=== PATIENT | female | born 1985 | race Caucasian/White ===

== ENCOUNTER → 2017-09-02 13:09 | Observation (INO) ==
[2017-09-02 09:53] LABS: Bilirubin,Urine Negative (Negative); Blood,Urine Negative (Negative); Clarity,Urine Clear (Clear); Color,Urine Yellow (Yellow); Glucose,Urine (UA) Normal (Normal); Ketones,Urine Negative (Negative); Leukocyte Esterase,Urine Negative (Negative); Nitrite,Urine Negative (Negative); Protein,Urine Trace mg/dL (Neg-Trace); Specific Gravity,Urine 1.029 (1.010-1.025); Urobilinogen,Urine Normal (Normal)
[2017-09-02 09:57] LABS: Bacteria,Urine None Seen per hpf (None-Few); Hyaline Casts,Urine None Seen per lpf (None-Few); Squamous Epithelial Cell,Urine Many per lpf (None-Few)
[2017-09-02 11:16] LABS: Amphetamine Screen,Urine Negative ng/mL (Cutoff=1000); Barbiturate Screen,Urine Negative ng/mL (Cutoff=200); Benzodiazepines Screen,Urine Negative ng/mL (Cutoff=200); Cannabinoid Screen,Urine Negative ng/mL (Cutoff = 50); Cocaine Screen,Urine Negative ng/mL (Cutoff= 300); Opiate Screen,Urine Negative ng/mL (Cutoff=300); Phencyclidine Screen,Urine Negative ng/mL (Cutoff=25)
[2017-09-02 12:17] LABS: Basophils % 0.2 %; Eosinophils # 0.1 K/mcL (0.0-0.6); Eosinophils % 1.9 %; Hematocrit 28.6 % (35.3-44.9); Hemoglobin 9.4 g/dL (11.5-15.4); Immature Granulocytes % 0.7 % (0-4); Lymphocytes % 18.1 %; Mean Corpuscular HGB Conc 32.9 g/dL (31.6-35.5); Mean Corpuscular Hemoglobin 29.7 pg (28.0-33.3); Mean Corpuscular Volume 90.2 fL (83.0-100.0); Mean Platelet Volume 9.9 fL (9.4-12.4); Monocytes # 0.5 K/mcL (0.0-1.3); Monocytes % 7.9 %; Neutrophils # 4.1 K/mcL (1.6-8.9); Platelet Count 103 K/mcL (140-400); Red Blood Count 3.17 M/mcL (3.82-4.97); Red Cell Distribution Width 14.2 % (11.5-14.5); Segmented Neutrophils % 71.2 %
--- NOTE | 2017-09-02 12:25 | OB/GYN History & Physical ---
Date of Encounter: 09/02/17 Time of Encounter: 12:00 Assessment and Plan (1) No care in current in third trimester Current visit: Yes Status: Acute admitted for observation lab work drawn Ultrasound for EFW, EGA, Placenta location Patient to call office on Monday to schedule care appointment with Dr. Armstrong (2) Low back pain Current visit: No Status: Acute discussed interventions for pain Qualifiers: Chronicity: acute Back pain laterality: right Sciatica presence: with sciatica Sciatica laterality: sciatica of right side Qualified Code(s): M54.41 - Lumbago with sciatica, right side (3) Current visit: No Status: Acute ultrasound dates at 30 weeks gestation Qualifiers: Weeks of gestation: 30 weeks Qualified Code(s): Z3A.30 - 30 weeks gestation of (4) Polyhydramnios affecting in third trimester Current visit: Yes Status: Acute NORBERTO 27.2 Patient encouraged to notify provider Patient needs 3 hour gtt (5) Rh negative status during in third trimester Current visit: Yes Status: Acute Rhogam given before discharge due to not having care and being 30 weeks gestation (6) Anemia affecting in third trimester Current visit: Yes Status: Acute Will start ferrous sulfate daily History of Present Illness Chief complaint: low back pain HPI: Ms. Mabry is a 32 year old female G3 T2 L2 presents to labor and delivery with complaints of low right sided back pain. Patient reports she is unsure of her gestational age due to not starting care yet. Patient reports she plans to see Dr. Armstrong because he was her doctor with last . Patient reports the pain occasionally goes down her leg, denies LOF or VB. Denies feeling contractions. Patient reports she took Motrin for the back pain. Patient educated to stop taking motrin during and take Tylenol if needed. Patient denies taking PNV. lab work and ultrasound ordered. Past Med Surg Social Fam HX - Past Medical History Source: patient Medical history: no medical history Psychiatric history: depression () - Past Surgical History Surgical History: no surgical history - Social History Smoking Status: Never smoker Smokeless Tobacco Status: No Alcohol use: none Drug use: none Recent Out of Country Travel Within the Last 8 Weeks: No Exposure or Possible Exposure to Illness During Travel: No - Family History Mother Living Status: Still Living Hx Family Cardiac Disorders: Yes (HTN) Hx Family Respiratory Disorders: No Hx Family Cancer: No Hx Family GI Disorders: No Hx Family Genitourinary Disorders: No Hx Family Endocrine Disorder: No Hx Family Musculoskeletal Disorders: No Hx Family Neuromuscular Disorders: No Hx Family Neurologic Disorders: No Hx Family HEENT Disorders: No Hx Family Autoimmune Disorders: No Hx Family Reproductive Disorders: No Hx Family Psychosocial Disorders: Yes (anxiety, depression) Hx Family Medical Disorders: No Obstetrical History - Pregnancies : 3 Para: 2 Term: 2 : 0 Ab's: 0 Livin Medications and Allergies No Known Home Drugs 09/02/17 [History] 3 Allergy/AdvReac Type Severity Reaction Status Date / Time No Known Allergies Allergy Verified 01/30/15 17:07 Review of System OB - Constitutional Constitutional ROS IM: no chills, no fever(s), no headache(s) - Cardiovascular Cardiovascular: no chest pain, no leg edema, no lightheadedness, no palpitations , no pedal edema, no syncope - Respiratory Respiratory: no cough - Gastrointestinal Gastrointestinal: no abdominal pain, no constipation, no cramping, no diarrhea, no heartburn, no nausea, no vomiting - Genitourinary Genitourinary: no abnormal vaginal bleeding, no difficulty urinating, no dysuria , no flank pain, no urinary frequency, no urinary incontinence, no urinary urgency, no vaginal discharge, no vaginal odor, no vaginal pruritis Exam - Constitutional Constitutional: well developed, well nourished, no acute distress, obese - HEENT HEENT: Normocephaly, Mucus Membranes Moist - Neck Neck exam: full ROM, supple - Lungs Respiratory exam: CTAB - Cardiovascular Cardiovascular exam: RRR, +S1, +S2 - Abdomen Abdomen: Present: bowel sounds normal, gravid, non tender - Extremities Extremities exam: full ROM, normal capillary refill, normal inspection Deep Tendon Reflex Grade: 2+ Normal - Comments Comments: FHR 135 bpm appropriate for gestational age. No contractions noted Results Result Diagrams: 09/02/17 12:03 Abnormal lab results RBC 3.17 M/mcL (3.82-4.97) L 09/02/17 12:03 Hgb 9.4 g/dL (11.5-15.4) L 09/02/17 12:03 Hct 28.6 % (35.3-44.9) L 09/02/17 12:03 Plt Count 103 K/mcL (140-400) L 09/02/17 12:03 Ur Specific [place] 1.029 (1.010-1.025) H 09/02/17 09:30 Urine Microscopic RBC 3-5 per hpf (0-3) H 09/02/17 09:30 Urine Microscopic WBC 3-5 per hpf (0-3) H 09/02/17 09:30 Ur Squamous Epith Cells Many per lpf (None-Few) H 09/02/17 09:30 All other labs normal. - VTE Reasons for not Prescribing Prophylaxis: Treatment not Indicated - Low risk for VTE
--- NOTE | 2017-09-02 12:43 | Discharge Summary ---
Date of Encounter: 09/02/17 Time of Encounter: 12:42 - Discharge Diagnosis (1) No care in current in third trimester Priority: Primary Status: Acute Comments: No care workup patient to follow up with Dr. Armstrong per patient request Will start PNV (2) Low back pain Priority: Secondary Status: Acute Comments: Interventions discussed Qualifiers: Chronicity: acute Back pain laterality: right Sciatica presence: with sciatica Sciatica laterality: sciatica of right side Qualified Code(s): M54.41 - Lumbago with sciatica, right side (3) Priority: Secondary Status: Acute Comments: Patient to follow up estee with OB provider Qualifiers: Weeks of gestation: 30 weeks Qualified Code(s): Z3A.30 - 30 weeks gestation of (4) Polyhydramnios affecting in third trimester Priority: Secondary Status: Acute Comments: Patient educated on Polyhydramnios Patient needs 3 hour gtt (5) Rh negative status during in third trimester Priority: Secondary Status: Acute Comments: Rhogam given prior to discharge (6) Anemia affecting in third trimester Priority: Secondary Status: Acute Comments: will start ferrous sulfate daily - Discharge Medications Prescriptions: Ferrous Sulfate 325 mg PO DAILY #30 tablet Vit Calc,Iron,Folic [ Vitamins] 1 each PO DAILY #30 tablet Home Medications: Ferrous Sulfate 325 mg PO DAILY #30 tablet 09/02/17 [Rx] Vit Calc,Iron,Folic [ Vitamins] 1 each PO DAILY #30 tablet [Rx] Allergies/Adverse Reactions: 3 Allergy/AdvReac Type Severity Reaction Status Date / Time No Known Allergies Allergy Verified 01/30/15 17:07 Data Procedures and tests throughout hospitalization: Laboratory Tests 09/02/17 09/02/17 09/02/17 09:30 09:30 09:30 WBC RBC Hgb Hct MCV MCH MCHC RDW Plt Count MPV Immature Gran % Seg Neutrophils % Lymphocytes % Monocytes % Eosinophils % Basophils % Neutrophils # Lymphocytes # Monocytes # Eosinophils # Basophils # Urine Color Yellow Urine Clarity Clear Urine pH 6.0 Ur Specific [place] 1.029 H Urine Protein Trace Urine Glucose (UA) Normal Urine Ketones Negative Urine Blood Negative Urine Nitrite Negative Urine Bilirubin Negative Urine Urobilinogen Normal Ur Leukocyte Esterase Negative Urine Microscopic RBC 3-5 H Urine Microscopic WBC 3-5 H Ur Squamous Epith Cells Many H Urine Bacteria None Seen Hyaline Casts None Seen Ur Culture Indicated? NO Urine Opiates Screen Negative Ur Barbiturates Screen Negative Ur Phencyclidine Scrn Negative Ur Amphetamines Screen Negative U Benzodiazepines Scrn Negative Urine Cocaine Screen Negative U Marijuana (THC) Screen Negative Blood Type A NEGATIVE 09/02/17 12:03 WBC 5.7 RBC 3.17 L Hgb 9.4 L Hct 28.6 L MCV 90.2 MCH 29.7 MCHC 32.9 RDW 14.2 Plt Count 103 L MPV 9.9 Immature Gran % 0.7 Seg Neutrophils % 71.2 Lymphocytes % 18.1 Monocytes % 7.9 Eosinophils % 1.9 Basophils % 0.2 Neutrophils # 4.1 Lymphocytes # 1.0 Monocytes # 0.5 Eosinophils # 0.1 Basophils # 0.0 Urine Color Urine Clarity Urine pH Ur Specific [place] Urine Protein Urine Glucose (UA) Urine Ketones Urine Blood Urine Nitrite Urine Bilirubin Urine Urobilinogen Ur Leukocyte Esterase Urine Microscopic RBC Urine Microscopic WBC Ur Squamous Epith Cells Urine Bacteria Hyaline Casts Ur Culture Indicated? Urine Opiates Screen Ur Barbiturates Screen Ur Phencyclidine Scrn Ur Amphetamines Screen U Benzodiazepines Scrn Urine Cocaine Screen U Marijuana (THC) Screen Blood Type Labs on day of discharge: Labs from last 24 hours 09/02/17 09/02/17 09/02/17 12:03 09:30 09:30 WBC 5.7 RBC 3.17 L Hgb 9.4 L Hct 28.6 L MCV 90.2 MCH 29.7 MCHC 32.9 RDW 14.2 Plt Count 103 L MPV 9.9 Immature Gran % 0.7 Seg Neutrophils % 71.2 Lymphocytes % 18.1 Monocytes % 7.9 Eosinophils % 1.9 Basophils % 0.2 Neutrophils # 4.1 Lymphocytes # 1.0 Monocytes # 0.5 Eosinophils # 0.1 Basophils # 0.0 Urine Color Yellow Urine Clarity Clear Urine pH 6.0 Ur Specific [place] 1.029 H Urine Protein Trace Urine Glucose (UA) Normal Urine Ketones Negative Urine Blood Negative Urine Nitrite Negative Urine Bilirubin Negative Urine Urobilinogen Normal Ur Leukocyte Esterase Negative Urine Microscopic RBC 3-5 H Urine Microscopic WBC 3-5 H Ur Squamous Epith Cells Many H Urine Bacteria None Seen Hyaline Casts None Seen Ur Culture Indicated? NO Urine Opiates Screen Ur Barbiturates Screen Ur Phencyclidine Scrn Ur Amphetamines Screen U Benzodiazepines Scrn Urine Cocaine Screen U Marijuana (THC) Screen Blood Type A NEGATIVE 09/02/17 09:30 WBC RBC Hgb Hct MCV MCH MCHC RDW Plt Count MPV Immature Gran % Seg Neutrophils % Lymphocytes % Monocytes % Eosinophils % Basophils % Neutrophils # Lymphocytes # Monocytes # Eosinophils # Basophils # Urine Color Urine Clarity Urine pH Ur Specific [place] Urine Protein Urine Glucose (UA) Urine Ketones Urine Blood Urine Nitrite Urine Bilirubin Urine Urobilinogen Ur Leukocyte Esterase Urine Microscopic RBC Urine Microscopic WBC Ur Squamous Epith Cells Urine Bacteria Hyaline Casts Ur Culture Indicated? Urine Opiates Screen Negative Ur Barbiturates Screen Negative Ur Phencyclidine Scrn Negative Ur Amphetamines Screen Negative U Benzodiazepines Scrn Negative Urine Cocaine Screen Negative U Marijuana (THC) Screen Negative Blood Type - Impressions ITS Impressions Obstetrics Ultrasound 09/02/17 11:00 IMPRESSION: Single live intrauterine with gestational age of 30 weeks 0 days by current sonographic biometry. The estimated due date is 11/11/2017. Elevated NORBERTO 27.2. The findings were sent to the Radiology Results Communication [facility] at 11:54 am on 09/02/2017to be communicated to a licensed caregiver. D/ / Raymon Kohler MD / Raymon Kohler MD Interpreting Provider: Raymon Kohler MD Date of admission: 09/02/17 09:03 Discharging clinician: Aaliyah Crandall Anticipated date of discharge: 09/02/17 - Patient Status Disposition: Home, Self-Care Condition: Good Functional capacity at discharge: independent ambulation - Discharge Instructions Follow Up With: Milton Armstrong MD [Non-Partnered Physician] - - Diet and Activity Activity: increase activity as tolerated Hospital Course SOFTWARE DEVELOPMENT SPECIALIST Time Attestation: Total time spent providing and/or coordinating discharge services: Time Spent: Less than 30 minutes Exam - Constitutional General appearance IM: A&O X 3, pleasant, answers questions appropriately (FHR 135 bpm ) - VTE Reasons for not Prescribing Prophylaxis: Treatment not Indicated - Low risk for VTE
[~2017-09-02 13:09] MED LIST: Rho Immune Globulin 1,500 UNIT SYRINGE IM ONE
[2017-09-02 16:12] LABS: Hepatitis B Surface Antigen Nonreactive (Nonreactive)
[2017-09-02 20:26] LABS: HIV-1&2 Antibody & p24 Ag Nonreactive (Nonreactive)
[2017-09-04 00:26] LABS: Estimated Average Glucose 82 mg/dl; Hemoglobin A1C 4.5 %
[2017-09-04 12:47] LABS: Rubella IgG Antibody POSITIVE (POSITIVE); Varicella Zoster IgG Antibody Positive
== END | disposition home or self-care (01) ==
LOC: 1NENULAB
PROVIDERS: ADMIT Student in an Organized Health Care Education/Training Program; ATTEND Student in an Organized Health Care Education/Training Program

== ENCOUNTER 2017-11-16 19:32 | Inpatient (IN) ==
--- NOTE | 2017-11-16 19:52 | OB/GYN History & Physical ---
Date of Encounter: 11/16/17 Time of Encounter: 19:51 Assessment and Plan (1) 40 weeks gestation of Current visit: Yes Status: Acute (2) History of inadequate care Current visit: Yes Status: Acute (3) Late care affecting Current visit: Yes Status: Acute Qualifiers: Trimester: third trimester Qualified Code(s): O09.33 - Supervision of with insufficient care, third trimester (4) Post-dates Current visit: Yes Status: Acute admit to labor and delivery Vertex verified by US by Dr. Bro Start pitocin per policy Nubain and epidural as desires GBS negative Anticipate Qualifiers: Post-term type: 40-42 weeks gestation Qualified Code(s): O48.0 - Post-term History of Present Illness Chief complaint: Induction of labor HPI: Ms. Mabry is a 32 year old female G3 T2 L2 presents for induction of labor for postdates at 40 weeks and 5 days per ultrasound on 09/02/17. care with Dr. Dawkins. complicated by late onset and inadequate care starting on 10/24/17 at 37 weeks gestation. Labs: A-, rubella immune, varicella immune, GBS negative, all other serologies negative Past Med Surg Social Fam HX - Past Medical History Medical history: no medical history Psychiatric history: depression () - Past Surgical History Surgical History: no surgical history - Social History Smoking Status: Never smoker Smokeless Tobacco Status: No Alcohol use: none Drug use: none - Family History Mother Living Status: Still Living Hx Family Cardiac Disorders: Yes (HTN) Hx Family Respiratory Disorders: No Hx Family Cancer: No Hx Family GI Disorders: No Hx Family Endocrine Disorder: No Hx Family Neuromuscular Disorders: No Hx Family Neurologic Disorders: No Hx Family HEENT Disorders: No Hx Family Autoimmune Disorders: No Obstetrical History - Pregnancies : 3 Para: 2 Term: 2 : 0 Ab's: 0 Livin Medications and Allergies Vit Calc,Iron,Folic [ Vitamins] 1 each PO DAILY #30 tablet [Rx] Ferrous Sulfate 325 mg PO BID 11/16/17 [History] 3 Allergy/AdvReac Type Severity Reaction Status Date / Time No Known Allergies Allergy Verified 11/16/17 19:54 Exam - Constitutional Constitutional: well developed, well nourished, no acute distress - Neck Neck exam: full ROM - Lungs Respiratory exam: CTAB - Cardiovascular Cardiovascular exam: RRR - Abdomen Abdomen: Present: gravid, non tender - Extremities Extremities exam: normal capillary refill, normal inspection - Vulva Vulva: bilateral: normal - Vagina Vagina: Present: normal moisture - Cervix Dilation: 3 Effacement: 80 Station: -3 - Anus/Rectum Anus/Rectum: Present: normal perianal skin Results Result Diagrams: 11/16/17 20:58 All other labs normal.
[2017-11-16] MEDS ORDERED: *HR* Nalbuphine 10 MG/ML AMPUL IVP PRN (19:56)
[2017-11-16] MEDS ORDERED: Famotidine 20 MG/2 ML VIAL IVP PRN (19:56)
[2017-11-16] MEDS ORDERED: Metoclopramide 10 MG/2 ML VIAL IVP PRN (19:56)
[2017-11-16] MEDS ORDERED: Ondansetron 4 MG/2 ML VIAL IVP PRN (19:56)
[2017-11-16] MEDS ORDERED: Naloxone 0.4 MG/ML INJ IVP PRN (19:56)
[2017-11-16] MEDS ORDERED: Ringers Solution, Lactated 1,000 ML IVC SCH (20:00)
[2017-11-16] MEDS ORDERED: Oxytocin 20 units/ LR 1000 mL 20 UNIT/1,000 ML BAG IVC SCH (21:00)
[2017-11-16 21:23] LABS: Basophils % 0.1 %; Eosinophils # 0.1 K/mcL (0.0-0.6); Eosinophils % 0.8 %; Hematocrit 31.1 % (35.3-44.9); Hemoglobin 10.4 g/dL (11.5-15.4); Immature Granulocytes % 0.5 % (0-4); Lymphocytes # 1.3 K/mcL (0.6-4.6); Lymphocytes % 15.1 %; Mean Corpuscular HGB Conc 33.4 g/dL (31.6-35.5); Mean Corpuscular Hemoglobin 30.1 pg (28.0-33.3); Mean Corpuscular Volume 90.1 fL (83.0-100.0); Mean Platelet Volume 11.1 fL (9.4-12.4); Monocytes # 0.5 K/mcL (0.0-1.3); Monocytes % 5.8 %; Neutrophils # 6.5 K/mcL (1.6-8.9); Platelet Count 110 K/mcL (140-400); Red Blood Count 3.45 M/mcL (3.82-4.97); Red Cell Distribution Width 15.7 % (11.5-14.5); Segmented Neutrophils % 77.7 %
--- NOTE | 2017-11-16 22:37 | Anesthesia Evaluation PreOp ---
Date of Encounter: 11/16/17 Time of Encounter: 22:32 - Past History Planned Operation: JASMYN Cardiac History: Denies any Significant Hx Pulmonary History: Denies Any Significant HX OPERATIONS DEVELOPER History: Denies Any Significant HX Other Medical History: Denies Any Significant HX Anesthesia History: No Prior Anesthetic Complications, Past Anesthesia ( previous epidural) : Yes Alcohol Use: none Drug use: none Medications and Allergies Vit Calc,Iron,Folic [ Vitamins] 1 each PO DAILY #30 tablet [Rx] Ferrous Sulfate 325 mg PO BID 11/16/17 [History] 3 Allergy/AdvReac Type Severity Reaction Status Date / Time No Known Allergies Allergy Verified 11/16/17 19:54 - Meds/Allergy Pre-op Review Medications Reviewed: Yes Allergies Reviewed: Yes Beta Blockers on Current Med List: No Anesthesia Results - Labs 11/16/17 20:58 Anesthesia Exam BP 133/82 P 95 R 16 T 97.0 Height: 5'2" Weight: 129.2kg NPO (# of Hours): 4 Pain Scale: 2 Pain Scale Used: Numeric (1 - 10) - HEENT Pupil (Motor): Pupils equal Mallampati: II Teeth: Poor dentition Oral Opening: Greater than 3 - OPERATIONS DEVELOPER LOC: Oriented OPERATIONS DEVELOPER Motor: Normal RUE, Normal LUE, Normal RLE, Normal LLE, Normal Face OPERATIONS DEVELOPER Sensory: Normal: RUE, LUE, RLE, LLE, Face - Cardiac Rhythm: Regular Murmur: None JVD: No Carotid Bruit: No - Pulmonary Breath Sounds: bilateral Clear Respiratory Effort: Symmetrical Anesthesia Assess/Plan ASA Score: 2 Modified Khris Scale for Level of Consciousness: Cooperative, oriented, and tranquil Anesthetic Plan: Regional Autologous Blood: No Monitoring Plan: Standard Monitors Recovery Plan: Other
[2017-11-16 23:15] LABS: Amphetamine Screen,Urine Negative ng/mL (Cutoff=1000); Barbiturate Screen,Urine Negative ng/mL (Cutoff=200); Benzodiazepines Screen,Urine Negative ng/mL (Cutoff=200); Cannabinoid Screen,Urine Negative ng/mL (Cutoff = 50); Cocaine Screen,Urine Negative ng/mL (Cutoff= 300); Opiate Screen,Urine Negative ng/mL (Cutoff=300); Phencyclidine Screen,Urine Negative ng/mL (Cutoff=25)
--- NOTE | 2017-11-17 00:44 | OB Labor Progress Note ---
Date of Encounter: 11/17/17 Time of Encounter: 00:42 Labor Progress Note - Subjective Subjective: Sleeping at this time - Cervix Cervix: deferred - Heart Tones Heart Tones: 120/moderate/+accels/-decels - Borup Borup: needs adjusted - Plan Plan: Continue pitocin per policy When regular contraction pattern will AROM Nubain and epidural as desires Anticipate
[2017-11-17] MEDS ORDERED: EPHEDrine 50 MG/ML VIAL IVP PRN (02:19)
[2017-11-17] MEDS ORDERED: Ondansetron 4 MG/2 ML VIAL IVP PRN (02:19)
[2017-11-17] MEDS ORDERED: Naloxone 0.4 MG/ML INJ IVP PRN (02:19)
[2017-11-17] MEDS ORDERED: *HR* FentaNYL (PF) 100 MCG/2 ML VIAL EP ONE (02:19)
[2017-11-17] MEDS ORDERED: Bupivacaine-MPF 0.25% 10 ML VIAL EP ONE (02:19)
[2017-11-17] MEDS ORDERED: Lidocaine -MPF 1% 5 ML AMPUL ONE (02:22)
[2017-11-17] MEDS ORDERED: Epidural Premix (fent/bupiv) 110 ML EP SCH (02:30)
--- NOTE | 2017-11-17 03:34 | Anesthesia Procedures ---
Date of Encounter: 11/17/17 Time of Encounter: 03:02 Procedures: Anesthesia - Epidural/Spinal Patient ID/Chart reviewed: Yes Patient examined: Yes OB Eval: Gestational age: 40 OB Eval: : 3 OB Eval: Hx Para: 2 OB Eval: Dilated at (cm): 4 OB Eval: Contractions: Non-stressed pattern Consent Obtained: Yes Supplemental Oxygen: None/Room Air Site Prep: Aseptic Technique, Sterile prep and drape, Povidone-Iodine 1% Patient position: upright Local Anesthetic: Lidocaine 1% Amount of Local Anesthetic used: 3 Touhy Needle Gauge: 18 Touhy Needle Depth (cm): 6 Catheter Depth at Skin (cm): 15 Test Dose (1.5% Lido + Epi): Volume given (mls): 3 Test Dose Result: Negative Loading Dose: 0.25% Marcaine (mls): 10 Loading Dose: Fentanyl (mcg): 100 Loading Dose Administered: Thru Catheter Infusion Med: 0.125% Bupivacaine w/ 2 mcg/ml Fentanyl Infusion Rate (mls/hr): [address]: Tegaderm, Tape Interspace Used: L4-L5 Loss of Resistance (FIORDALIZA): Yes Blood: No CSF: No Paresthesia: No Procedure: JASMYN placed first pass in upright position without any immediate noted complications. VSS and FHT stable throughout Vitals + FHT's: 0302 BP 131/66 P 91 R 18 0325 BP 118/61 P 90 R 16 FHT 118
--- NOTE | 2017-11-17 06:14 | OB Labor Progress Note ---
Date of Encounter: 11/17/17 Time of Encounter: 06:12 Labor Progress Note - Cervix Cervix: 7/80/-1 - Heart Tones Heart Tones: 120 - Interventions Interventions: AROM / light mec - Plan Plan: Anticipate
--- NOTE | 2017-11-17 09:17 | OB/GYN Procedure Note ---
Delivery - Delivery Date: 11/17/17 Provider: Jayden Chance Delivery induction: oxytocin Delivery monitor: internal FHT, internal uterine Anesthesia: epidural Quantitated Blood Loss: 100 - (s) A Infant Delivery Date: 11/17/17 Delivery Time: 08:55 Presentation: vertex Position: MICHELLE Route of delivery: Gender: Male Viability: Viable Pounds: 7 Ounces: 13 at 1 minute: 8 at 5 mins: 9 Shoulder Dystocia: not encountered Specimens collected: cord blood Placenta: spontaneous Cord: 3 umbilical vessels - Repair Episiotomy: none Laceration Description: Perineal - 1st Degree - Complications Delivery complications: none - Disposition Mom disposition: stable in LDR disposition: stable in LDR - Comments Comments: Patient's 32-year-old 3 now para 3 female status post normal sponges vaginal delivery of a liveborn male from right occiput anterior presentation. There is no nuchal cord noted and no shoulder dystocia. With spontaneous delivery of a normal placenta with three-vessel cord. I repaired first-degree laceration with 3-0 Monocryl suture under epidural anesthesia. I blood loss 10 mL were no complications mother and infant recovered in labor and delivery room
[2017-11-17] MEDS ORDERED: Measles/Mumps/Rubella Vacc 0.5 ML VIAL SQ PRN (09:56)
[2017-11-17] MEDS ORDERED: Rho Immune Globulin 1,500 UNIT SYRINGE IM PRN (09:56)
[2017-11-17] MEDS ORDERED: Oxytocin 20 units/ LR 1000 mL 20 UNIT/1,000 ML BAG IVC SCH (09:56)
[2017-11-17] MEDS ORDERED: Acetaminophen 325 MG TABLET PO PRN (09:56)
[2017-11-17] MEDS: Ibuprofen 600 MG TABLET PO PRN ×2 (13:01→20:07)
[2017-11-18] MEDS: Ibuprofen 600 MG TABLET PO PRN (04:16)
[2017-11-18 06:40] LABS: Basophils % 0.1 %; Eosinophils # 0.1 K/mcL (0.0-0.6); Hematocrit 29.1 % (35.3-44.9); Hemoglobin 9.7 g/dL (11.5-15.4); Immature Granulocytes % 0.7 % (0-4); Lymphocytes # 1.5 K/mcL (0.6-4.6); Lymphocytes % 20.7 %; Mean Corpuscular HGB Conc 33.3 g/dL (31.6-35.5); Mean Corpuscular Hemoglobin 30.5 pg (28.0-33.3); Mean Corpuscular Volume 91.5 fL (83.0-100.0); Mean Platelet Volume 10.6 fL (9.4-12.4); Monocytes # 0.5 K/mcL (0.0-1.3); Monocytes % 7.2 %; Platelet Count 103 K/mcL (140-400); Red Blood Count 3.18 M/mcL (3.82-4.97); Red Cell Distribution Width 16.1 % (11.5-14.5); Segmented Neutrophils % 70.3 %
[2017-11-18 08:17] VITALS: BP 91/57
[2017-11-18] MEDS ORDERED: Prenatal Vit/FA 1 EACH TABLET PO SCH (09:00)
--- NOTE | 2017-11-18 09:28 | Discharge Summary ---
Date of Encounter: 11/18/17 Time of Encounter: 09:25 - Discharge Diagnosis (1) Vaginal delivery Priority: Primary Status: Acute Comments: Pain well controlled with by mouth pain meds Tolerating regular diet Ambulating independently Voiding independently Passing flatus, no BM yet Lochia light Discharge home today (2) anemia Priority: Secondary Status: Acute Comments: Continue iron twice daily - Discharge Medications Prescriptions: Ibuprofen [Motrin] 600 mg PO Q6HR PRN #30 tablet PRN Reason: Moderate Pain/Cramping Docusate [Colace] 100 mg PO BID #60 capsule Ferrous Sulfate 325 mg PO BID #60 tablet Home Medications: Vit Calc,Iron,Folic [ Vitamins] 1 each PO DAILY #30 tablet [Rx] Acetaminophen [Tylenol] 650 mg PO Q6HR PRN tablet 11/18/17 [Rx] Docusate [Colace] 100 mg PO BID #60 capsule 11/18/17 [Rx] Ferrous Sulfate 325 mg PO BID #60 tablet 11/18/17 [Rx] Ibuprofen [Motrin] 600 mg PO Q6HR PRN #30 tablet 11/18/17 [Rx] Allergies/Adverse Reactions: 3 Allergy/AdvReac Type Severity Reaction Status Date / Time No Known Allergies Allergy Verified 11/16/17 19:54 Data Procedures and tests throughout hospitalization: Laboratory Tests 11/16/17 11/16/17 11/17/17 20:58 22:15 09:26 WBC 8.4 RBC 3.45 L Hgb 10.4 L Hct 31.1 L MCV 90.1 MCH 30.1 MCHC 33.4 RDW 15.7 H Plt Count 110 L MPV 11.1 Immature Gran % 0.5 Seg Neutrophils % 77.7 Lymphocytes % 15.1 Monocytes % 5.8 Eosinophils % 0.8 Basophils % 0.1 Neutrophils # 6.5 Lymphocytes # 1.3 Monocytes # 0.5 Eosinophils # 0.1 Basophils # 0.0 Urine Opiates Screen Negative Ur Barbiturates Screen Negative Ur Phencyclidine Scrn Negative Ur Amphetamines Screen Negative U Benzodiazepines Scrn Negative Urine Cocaine Screen Negative U Marijuana (THC) Screen Negative Ur Drug Screen Interp See Below Baby's Blood Type A RH NEGATIVE Mother's Blood Type A RH NEGATIVE Rhogam Indicated NO 11/18/17 06:11 WBC 7.1 RBC 3.18 L Hgb 9.7 L Hct 29.1 L MCV 91.5 MCH 30.5 MCHC 33.3 RDW 16.1 H Plt Count 103 L MPV 10.6 Immature Gran % 0.7 Seg Neutrophils % 70.3 Lymphocytes % 20.7 Monocytes % 7.2 Eosinophils % 1.0 Basophils % 0.1 Neutrophils # 5.0 Lymphocytes # 1.5 Monocytes # 0.5 Eosinophils # 0.1 Basophils # 0.0 Urine Opiates Screen Ur Barbiturates Screen Ur Phencyclidine Scrn Ur Amphetamines Screen U Benzodiazepines Scrn Urine Cocaine Screen U Marijuana (THC) Screen Ur Drug Screen Interp Baby's Blood Type Mother's Blood Type Rhogam Indicated Labs on day of discharge: Labs from last 24 hours 11/18/17 11/17/17 06:11 09:26 WBC 7.1 RBC 3.18 L Hgb 9.7 L Hct 29.1 L MCV 91.5 MCH 30.5 MCHC 33.3 RDW 16.1 H Plt Count 103 L MPV 10.6 Immature Gran % 0.7 Seg Neutrophils % 70.3 Lymphocytes % 20.7 Monocytes % 7.2 Eosinophils % 1.0 Basophils % 0.1 Neutrophils # 5.0 Lymphocytes # 1.5 Monocytes # 0.5 Eosinophils # 0.1 Basophils # 0.0 Baby's Blood Type A RH NEGATIVE Mother's Blood Type A RH NEGATIVE Rhogam Indicated NO Date of admission: 11/16/17 19:32 Primary care physician: PCP NONE Consults: 11/17/17 09:56 Consult to Accounts Payable Representative [CONS] Routine Comment: Vaginal delivery, consult needed Discharging clinician: Virginia Newell Anticipated date of discharge: 11/18/17 - Patient Status Disposition: Home, Self-Care Condition: Good Functional capacity at discharge: independent ambulation Overall status at discharge: patient is progressing back to baseline - Discharge Instructions Follow Up With: NONE,PCP [Primary Care Provider] - Milton Armstrong MD [Partnered Physician] - - Diet and Activity Activity: increase activity as tolerated Diet: regular diet Hospital Course Reason for admission: active labor, IUP - Delivery: Episiotomy: none Laceration: 1st degree Other procedures: none complications: none Discharge diagnosis: delivery baby: male Time Attestation: Total time spent providing and/or coordinating discharge services: Time Spent: Less than 30 minutes Exam - Constitutional Vitals: Temp Pulse Resp BP Pulse Ox 98.5 F 91 16 91/57 98 11/18/17 07:30 11/18/17 07:30 11/18/17 07:30 11/18/17 07:30 11/17/17 19:30 General appearance IM: A&O X 3 - Respiratory Respiratory exam: Present: CTAB - Cardiovascular Cardiovascular exam IM: Present: RRR, +S1, +S2 - GI/Abdominal GI/Abdominal exam IM: normal bowel sounds, no peritoneal signs - Rectal Rectal exam: deferred - Uterine Tone: Firm Uterus Position: At Umbilicus, Midline - Extremities Exam Extremities exam IM: Present: normal inspection, radial pulses palpable and symmetrical - Neurological Exam Neurological exam: alert, CN II-XII intact, normal gait, oriented X3, reflexes normal, no focal deficits, strengths equal and symetr throughout - Psychiatric Additional comments: Patient reports history of depression with first baby. Signs and symptoms of depression discussed with patient and partner and they both verbalize understanding of when to seek help. - Other Additional findings: Breasts: Soft, nontender
== END 2017-11-18 14:20 | disposition home or self-care (01) | DRG 560 ==
LOC: 1NENULAB 19:32 → 1NENUOBS 11-17 11:23
PROVIDERS: ADMIT Obstetrics & Gynecology; ATTEND Obstetrics & Gynecology

== ENCOUNTER 2021-01-18 23:47 | Observation (INO) ==
[2021-01-19] MEDS ORDERED: Isovue-370 500 ML BOTTLE IVP ONE (00:05)
[2021-01-19 01:23] LABS: Basophils % 0.2 %; Eosinophils # 0.1 K/mcL (0.0-0.6); Eosinophils % 3.2 %; Hematocrit 36.1 % (35.3-44.9); Immature Granulocytes % 0.5 % (0-4); Immature Platelets 4.7 % (1.1-6.1); Lymphocytes # 1.4 K/mcL (0.6-4.6); Lymphocytes % 30.7 %; Mean Corpuscular HGB Conc 33.2 g/dL (31.6-35.5); Mean Corpuscular Hemoglobin 29.9 pg (28.0-33.3); Mean Platelet Volume 10.8 fL (9.4-12.4); Monocytes # 0.3 K/mcL (0.0-1.3); Monocytes % 7.7 %; Neutrophils # 2.5 K/mcL (1.6-8.9); Platelet Count 124 K/mcL (140-400); Red Blood Count 4.01 M/mcL (3.82-4.97); Red Cell Distribution Width 12.7 % (11.5-14.5); Segmented Neutrophils % 57.7 %; White Blood Count 4.4 K/mcL (4.3-11.1)
[2021-01-19 01:34] LABS: BUN/Creatinine Ratio 18 (6-26); Blood Urea Nitrogen 12 mg/dL (6-20); Calcium 8.4 mg/dL (8.6-10.3); Carbon Dioxide 27 mEq/L (23-29); Chloride 108 mEq/L (98-107); Glucose 102 mg/dL (70-105); Osmolality,Calculated 292 (280-300); Potassium 3.6 mEq/L (3.5-5.1); Sodium 141 mEq/L (136-145); Troponin I < 0.03 ng/mL (< 0.04); eGFR For African Americans > 60 (> 60); eGFR For Non-African Americans > 60 (> 60)
[2021-01-19] MEDS ORDERED: Ondansetron 4 MG/2 ML VIAL IVP ONE (04:01)
[2021-01-19 05:18] LABS: Adenovirus Not Detected (Not Detect); Bordetella Pertussis Not Detected (Not Detect); Chlamydophila pneumoniae Not Detected (Not Detect); Coronavirus 229E Not Detected (Not Detect); Coronavirus HKU1 Not Detected (Not Detect); Coronavirus NL63 Not Detected (Not Detect); Coronavirus OC43 Not Detected (Not Detect); Human Metapneumovirus Not Detected (Not Detect); Human Rhinovirus/Enterovirus Not Detected (Not Detect); Influenza A Subtype 2009 H1 Not Detected (Not Detect); Influenza B Not Detected (Not Detect); Mycoplasma pneumoniae Not Detected (Not Detect); Parainfluenza Virus 1 Not Detected (Not Detect); Parainfluenza Virus 2 Not Detected (Not Detect); Parainfluenza Virus 3 Not Detected (Not Detect); Parainfluenza Virus 4 Not Detected (Not Detect); Respiratory Syncytial Virus Not Detected (Not Detect); SARS-CoV-2 Not Detected (Not Detect)
[2021-01-19] MEDS ORDERED: Naloxone 0.4 MG/ML INJ IVP PRN (05:45)
[2021-01-19] MEDS ORDERED: Ondansetron 4 MG/2 ML VIAL IVP PRN (05:45)
[2021-01-19] MEDS ORDERED: Perflutren Lipid Microsphere 1.3 ML in 0.9 % Sodium Chloride 8.7 ML IVP PRN (05:47)
[2021-01-19 10:55] VITALS: O2SAT 97
[2021-01-19 14:35] VITALS: BP 126/77; PULSE 86; TEMP 98.2
== END 2021-01-19 17:11 | disposition home or self-care (01) ==
LOC: CDU 23:47 → EMEROOARM 23:47 → CDU 01-19 04:39
PROVIDERS: ADMIT Student in an Organized Health Care Education/Training Program; ATTEND Student in an Organized Health Care Education/Training Program